=== PATIENT | male | born 1985 | race Two or more races ===

== ENCOUNTER 2016-12-14 23:09 | Emergency (ER) | payer OTHER ==
[~2016-12-14] VITALS: Ht 167.6 cm; Wt 77.1 kg
[2016-12-14 23:21] VITALS: BP 133/73
[2016-12-15] MEDS ORDERED: KETOROLAC TROMETH 60MG/2ML VIAL IM ONE (01:00)
[2016-12-15] MEDS ORDERED: cefTRIAXone SOD 1,000 MG VL IM ONE (01:00)
== END 2016-12-15 01:35 | disposition home or self-care (01) ==
LOC: ER 23:15
DX: K04.7 Periapical abscess without sinus (principal); F17.210 Nicotine dependence, cigarettes, uncomplicated; F15.10 Other stimulant abuse, uncomplicated
CPT/HCPCS: 96372; 99284; J0696; J1885

== ENCOUNTER → 2016-12-14 | Emergency (ER) | payer OTHER | END | disposition left against medical advice (07) | LOC: ER 15:55 | DX: K08.89 Other specified disorders of teeth and supporting structures (principal); Z53.21 Procedure and treatment not carried out due to patient leaving prior to being seen by health care provider ==